=== PATIENT | female | born 2000 | race Caucasian/White ===

== ENCOUNTER → 2021-12-11 | Outpatient (CLI) | payer MEDICAID, SELFPAY ==
[2021-12-11 11:25] LABS: Absolute Lymphocyte Count 2.23 X10^3/uL (0.83-4.51); Absolute Neutrophil Count 3.4 X10^3/uL (2.0-7.7); Basophil# 0.06 X10^3/uL; Basophil% 0.9 % (0-1); Eosinophil# 0.16 X10^3/uL; Eosinophils% 2.5 % (0-5); Hematocrit 40.6 % (37-47); Hemoglobin 13.2 g/dL (12.0-15.0); Lymphocyte # 2.23 X10^3/ul (0.83-4.51); Lymphocyte % 34.6 % (19-41); Mean Corp Hgb Conc 32.5 g/dL (32-36); Mean Corpuscular Hgb 30.7 pg (27.0-32.0); Mean Corpuscular Volume 94.4 fL (81-99); Mean Platelet Vol. 10.8 fl (6.2-12.0); Monocyte# 0.62 X10^3/uL; Monocyte% 9.6 % (0-10); NRBC Flagged by Analyzer 0 % (0-5); Neutrophil # 3.36 X10^3/uL (2.7-7.7); Neutrophil % 52.2 % (47-70); Platelet Count 256 K/mm3 (150-450); RBC Distribution Width CV 12.8 % (11.6-14.6); White Blood Count 6.4 K/mm3 (4.4-11.0)
[2021-12-11 11:50] LABS: Vitamin D,25 Hydroxy 19.6 ng/mL
[2021-12-11 12:09] LABS: ALB/GLOB Ratio 1.3 RATIO (0.9-2.4); AST(SGOT) 10 U/L (15-37); Alanine Aminotransfer ALT/SGPT 12 U/L (13-56); Albumin, Serum 4.3 g/dL (3.2-5.0); Alkaline Phosphatase 43 U/L (45-117); Anion Gap 2 (5-15); BUN 11 mg/dL (7-18); BUN/Creat Ratio 12.7 RATIO (10-20); Chloride 107 mmol/L (98-107); Creatinine, Serum 0.87 mg/dL (0.55-1.02); EST Glomerular Filtration Rate 88 mL/min (>60); Est Glom Filt Rate - Afr Amer 106 mL/min (>60); Globulin 3.2 g/dL (2.2-4.2); Glucose 88 mg/dL (74-106); Protein, Total 7.5 g/dL (6.4-8.2); Sodium Level 138 mmol/L (136-145); Thyroid Stim Hormone (TSH) 2.91 uIU/mL (0.358-3.74)
== END | disposition home or self-care (01) ==
DX: R53.83 Other fatigue (principal); F33.1 Major depressive disorder, recurrent, moderate
CPT/HCPCS: 36415; 80053; 82306; 84439; 84443; 85025

== ENCOUNTER → 2023-03-03 | Outpatient (CLI) | payer SELFPAY ==
--- NOTE | 2023-03-03 14:57 | NEURO ---
NCS and/or EMG Patient Report Ordering Doctor: Mckenna Ken NP DATE OF SERVICE: 03/03/23 Ilene presents for electrodiagnostic testing of the upper limbs. She reports numbness and tingling in both hands for the past 6 months. Electrodiagnostic findings: Median motor nerve demonstrates normal distal latency, amplitude and conduction velocity bilaterally. Normal ulnar motor response noted bilaterally. Normal median and ulnar F-waves. Sensory responses are within normal limits. Needle EMG testing was performed in the upper limbs. All muscles tested showed no evidence of denervation with normal motor unit action potentials. Electrodiagnostic impression: This is a normal electrodiagnostic study of the upper limbs. There is no electrodiagnostic evidence for peripheral neuropathy, including carpal tunnel or cubital tunnel syndrome. There is no electrodiagnostic evidence for cervical radiculopathy.
== END | disposition home or self-care (01) ==
PROVIDERS: PCP Nurse Practitioner Family; Referring Provider Nurse Practitioner Family; Visit Provider Nurse Practitioner Family
DX: R20.0 Anesthesia of skin (principal)
CPT/HCPCS: 95886; 95913

== ENCOUNTER 2023-05-23 14:54 | Emergency (ER) | payer SELFPAY ==
[2023-05-23 14:56] VITALS: BP 116/75; PULSE 72; RESP 16; TEMP 37.1; O2SAT 98; BMI 17.2
--- NOTE | 2023-05-23 15:36 | EX.ED.VIS.UR ---
HPI HPI - URI History of Present Illness Chief Complaint: Ear Problem Informant: patient Onset/Context/Timing Onset: Today Context: Sudden Onset Timing: Continuous Quality: Dull, pressure Location: Right ear Worsened by: - (Nothing) Relieved by: - (Sniffing her nose) Associated Symptoms Associated Symptoms: Positive for Nasal Congestion, Nausea and Nonproductive cough; Negative for Headache, Sinus Pressure, Myalgias, Vomiting, Diarrhea, Shortness of Breath, Chest Pain, Hemoptysis or Productive Cough Narrative Narrative: Patient presents with right ear pain that began today. Patient states it began rather suddenly. Patient states it began a couple hours prior to arrival. Patient describes as a pressure and dull pain to her right ear. Patient states it has been waxing and waning. Patient admits to some nasal congestion. Patient admits to a cough. Patient states she has some nausea but thinks it is due to the postnasal drainage. Patient denies any vomiting or diarrhea. Patient denies any fevers or chills. ROS ROS ED Constitutional Constitutional ED: Denies chills or fever(s) Eyes Eyes: Denies blurry vision or change in vision ENT ENT ED: Reports ear pain right and sore throat; Denies rhinorrhea Cardiovascular Cardiovascular: Denies chest pain or palpitations Respiratory/Chest Respiratory/Chest: Reports cough; Denies dyspnea Gastrointestinal Gastrointestinal: Reports nausea; Denies vomiting Genitourinary Genitourinary ED: Denies dysuria or hematuria Musculoskeletal Musculoskeletal: Reports neck pain; Denies back pain Integumentary Denies abscess or rash Neurologic Neurologic: Denies headache(s) or weakness Allergic/Immunologic Allergic/Immunologic ED: Denies mouth swelling or urticaria [facility] Medical History (Updated 05/23/23 @ 15:[address] German Toribio, ) PTSD (post-traumatic stress disorder) Home Medications naproxen 250 mg tablet 250 mg PO BID PRN PRN Pain ##20 08/01/16 [Rx Last Taken Unknown] amoxicillin 500 mg tablet 500 mg PO TID #30 tabs 05/23/23 [Rx Last Taken Unknown] Allergy/AdvReac Type Severity Reaction Status Date / Time No Known Allergies Allergy Verified 05/23/23 14:56 Surgical History no surgical history no surgical history Social History (Updated 05/23/23 @ 15:[address] German Schwiger, DO) Electronic Cigarette Use: with nicotine substance use type: marijuana EXAM Physical Exam Const Vital Signs: 05/23/23 14:56 Temperature 98.8 F Temperature Source Temporal Pulse Rate 72 Respiratory Rate 16 Blood Pressure 116/75 Blood Pressure Mean 88 Pulse Ox 98 Oxygen Delivery Method Room Air Positive well nourished and well developed General Appearance ED: well developed and NAD HEENT Reports moist mucous membranes HEENT Narrative: The right tympanic membrane is erythematous and bulging. The left tympanic membrane is clear. normocephalic and atraumatic Throat: posterior oropharynx normal Eyes PERRL and EOMs intact bilaterally Neck supple and no JVD General: lymphadenopathy anterior cervical tender Resp normal respiratory effort and clear to auscultation bilaterally Cardio Rate: regular rate Rhythm: regular rhythm Extremity normal to inspection and full ROM Neuro oriented x3, CN's II-XII intact bilaterally and no sensory deficits noted Sensorium / Orientation: alert Motor Exam: strength 5/5 throughout Psych mental status grossly normal MDM MDM MDM Narrative Medical decision making narrative: Patient was advised that this is a right otitis media. Patient was given a dose of amoxicillin here. Patient was given a prescription for amoxicillin. Patient was instructed to continue using [id number] decongestants as needed. Patient was instructed to continue Tylenol or ibuprofen as needed for pain. Patient was instructed to follow-up with her primary care physician in 5 to 7 days. Patient understood and was agreeable with the plan. All questions were answered. Discharge Plan Triage Chief Complaint: Ear Problem ED Provider: German Toribio Dx/Rx/DC Orders Clinical Impression: Acute otitis media, right Instructions: ED Otitis Media Adult Prescriptions: New amoxicillin 500 mg tablet 500 mg PO TID Qty: 30 0RF No Action naproxen 250 MG tablet 250 mg PO BID PRN PRN (Reason: Pain) Qty: 20 0RF Primary Care Provider: Mckenna Ken NP Referrals: Mckenna Ken NP, [facility] [Primary Care Provider] - 5-7 Days Disposition Disposition: Home, Self Care
[2023-05-23] MEDS: Acetaminophen 500 MG Tablet 1000 MG PO (15:48)
[2023-05-23] MEDS: AMOXICILLIN 500 MG CAPSULE PO (15:50)
== END 2023-05-23 16:03 | disposition home or self-care (01) ==
LOC: ED 16:00
PROVIDERS: Emergency Provider Emergency Medicine; PCP Nurse Practitioner Family; Visit Provider Emergency Medicine
DX: H66.91 Otitis media, unspecified, right ear (principal); R09.81 Nasal congestion; F17.210 Nicotine dependence, cigarettes, uncomplicated; R11.0 Nausea; F12.90 Cannabis use, unspecified, uncomplicated
CPT/HCPCS: 99283